=== PATIENT | female | born 1970 ===

== ENCOUNTER 2016-12-01 09:56 | Emergency (ER) | payer OTHER ==
--- NOTE | 2016-12-01 10:14 | UC ---
Headache HPI - HPI Summary HPI Summary: complaint of headache that started yesterday afternoon at work - was able to sleep last night then woke up with headache this morning headache is located behind her eyes photophobia and feels nauseated went to work this morning but couldn't continue d/t pain took exedrin migraine without relief at 7:00 AM without relief taking clartitin to control allergies and avoid migraine hx of migraines and this feels like her normal migraine used to use imitrex but avoids it because she doesn't like to take pils seen by neurology at [facility] last year- told that she has stress induced migraines and has followup appt in [address] Valente is PCP - History Of Current Complaint Chief Complaint: UCHeadache Stated Complaint: HEADACHE Time Seen by Provider: 12/01/16 10:06 Hx Obtained From: Patient Hx Last Menstrual Period: 11/23/16 Onset/Duration: Gradual Onset Onset Of Symptoms: Gradual Initially Headache Was: Moderate Currently Pain Is: Moderate Character: Pressure Location of Headache: Frontal Aggravating Factor: Bright Lights Associated Signs And Symptoms: Positive: Nausea - Allergies/Home Medications Allergies/Adverse Reactions: Allergies Allergy/AdvReac Type Severity Reaction Status Date / Time Perfume Allergy Rash Verified 12/01/16 10:03 Home Medications: Home Medications [id number] [Excedrin Migraine 250-250-65 mg] 2 tab PO Q6HR PRN 12/01/16 [History Confirmed 12/01/16] Ketorolac Tromethamine (Ophth) [Acuvail] 2 drop OPHTHALMIC ONCE PRN 12/01/16 [ History Confirmed 12/01/16] PMH/Surg Hx/FS Hx/Imm Hx Previously Healthy: Yes - endometriosis Neurological History: Migraine - Surgical History Surgical History: Yes Surgery Procedure, Year, and Place: cyst removal. laproscopic endometriosis surgery - Family History Known Family History: Negative: Diabetes - Social History Occupation: Employed Full-time Lives: With Family Alcohol Use: Rare Substance Use Type: None Smoking Status (MU): Never Smoked Tobacco Household Exposure Type: Cigarettes Review of Systems Constitutional: Negative Skin: Negative Eyes: Eye Redness, Photophobia ENT: Negative Respiratory: Negative Cardiovascular: Negative Gastrointestinal: Negative Genitourinary: Negative Motor: Negative Neurovascular: Negative Musculoskeletal: Negative Neurological: Headache Psychological: Negative All Other Systems Reviewed And Are Negative: Yes Physical Exam Triage Information Reviewed: Yes Appearance: Well-Nourished, Pain Distress Vital Signs: Initial Vital Signs Temp 98.2 F 12/01/16 10:00 Pulse 90 12/01/16 10:00 Resp 16 12/01/16 10:00 BP 120/79 12/01/16 10:00 Pulse Ox 100 12/01/16 10:00 Vital Signs Reviewed: Yes Eyes: Positive: Other: - right conjunctiva erythema, fundoscopic exam normal. Negative: Discharge ENT: Positive: Pharynx normal, TMs normal Neck: Positive: Supple, No Lymphadenopathy Respiratory: Positive: Lungs clear, Normal breath sounds, No respiratory distress, No accessory muscle use Cardiovascular: Positive: RRR, No Murmur, Pulses Normal, Brisk Capillary Refill Abdomen Description: Positive: Nontender, Soft Bowel Sounds: Positive: Present Musculoskeletal: Positive: No Edema Neurological: Positive: Alert, Other: - CN [id number] normal negative [place] Psychological Exam: Normal Skin Exam: Normal Re-Evaluation - Re-Evaluation First Eval Re-Evaluation Time: 10:58 Change: Improved - headache pain has lessened from 10 to 3 on a scale from 0-10 Headache Course/Dx - Course Course Of Treatment: exam completed. no red flags to warrant imaging. will treat for acute migraine and pain and rx for imitrex for rescue intervention. will followup with PCP. discussed s/s of when to seek emergent care - Differential Dx/Diagnosis Differential Diagnosis/HQI/PQRI: Migraine, Sinus Headache, Tension Headache Provider Diagnoses: migraine Discharge - Discharge Plan Condition: Stable Disposition: HOME Prescriptions: SUMAtriptan TAB* [Imitrex TAB*] 50 mg PO SEE INSTRUCTIONS #2 tab Patient Education Materials: Migraine Headache (ED) Forms: *Work Release Referrals: Vicenta Thompson MD [Primary Care Provider] - Additional Instructions: Increase fluids and rest continue excedrin in 6 hours as needed for pain Please review your discharge instructions. If your symptoms do not improve please call your primary care provider or return to urgent care.
[2016-12-01] MEDS ORDERED: Ketorolac INJ* 60 MG/2 ML VIAL IM ONE (10:19)
[2016-12-01 10:28] VITALS: BP 120/79
== END 2016-12-01 11:05 | disposition home or self-care (01) ==
LOC: UCEAST 09:56
DX: G43.909 Migraine, unspecified, not intractable, without status migrainosus (principal)
CPT/HCPCS: 96372; J1885

== ENCOUNTER 2016-12-06 11:12 | Emergency (ER) | payer OTHER ==
--- NOTE | 2016-12-06 14:36 | UC ---
Eye Complaint HPI - HPI Summary HPI Summary: 46 y/o female presents to the urgent care c/o RT eye with redness and blurred vision since last Wednesday night 11/30/2016. Pt reports she was seen at the Urgent care on 12/01/2016 for Migraine FELIZ Rx Imitrex. Her Migraine FELIZ resolved, but her eye continue to increase in redness and now she has yellowish discharge in the morning, with blurred vision and pressure. Denies pain, FELIZ, N/V/D, chest pain. No other sick contact with similar symptoms. Pt has not other complains. - History of Current Complaint Chief Complaint: UCEye Stated Complaint: EYE COMPLAINT Time Seen by Provider: 12/06/16 14:14 Hx Obtained From: Patient Hx Last Menstrual Period: 11/23/16 ?: No Onset/Duration: Gradual Onset, Lasting Days, Still Present Timing: Constant Severity Initially: Mild Severity Currently: Moderate Pain Intensity: 0 Pain Scale Used: 0-10 Numeric Location of Injury: Conjunctiva - RT eye Character: Dull Aggravating Factor(s): Blinking Alleviating Factor(s): Nothing Associated Signs And Symptoms: Positive: Drainage (Purulent), Vision Impairment Right. Negative: Fever, Swelling - Risk Factors Penetrating Injury Risk Factor: Negative Globe Rupture Risk Factors: Negative Acute Glaucoma Risk Factors: Negative Optic Artery Occlusion Risk Factors: Negative - Allergies/Home Medications Allergies/Adverse Reactions: Allergies Allergy/AdvReac Type Severity Reaction Status Date / Time Perfume Allergy Rash Verified 12/01/16 10:03 PMH/Surg Hx/FS Hx/Imm Hx Previously Healthy: Yes Endocrine History: Other - anemia Other Endocrine History: Anemia Other GI/ History: Endometriosis Neurological History: Migraine - Surgical History Surgical History: Yes Surgery Procedure, Year, and Place: cyst removal. laproscopic endometriosis surgery - Family History Known Family History: Positive: Cardiac Disease, Hypertension Negative: Diabetes Family History: COPD - Social History Occupation: Employed Full-time Lives: With Family Alcohol Use: Occasionally Substance Use Type: None Smoking Status (MU): Never Smoked Tobacco Household Exposure Type: Cigarettes Review of Systems Constitutional: Negative Skin: Negative Eyes: Blurred Vision, Drainage - yellowish, Eye Redness - RT eye ENT: Negative Respiratory: Negative Cardiovascular: Negative Gastrointestinal: Negative Genitourinary: Negative Motor: Negative Neurovascular: Negative Musculoskeletal: Negative Neurological: Negative Psychological: Negative All Other Systems Reviewed And Are Negative: Yes Physical Exam Triage Information Reviewed: Yes Appearance: Well-Appearing, No Pain Distress, Well-Nourished, Thin Vital Signs: Initial Vital Signs Temp 99.1 F 12/06/16 12:14 Pulse 101 12/06/16 12:14 Resp 18 12/06/16 12:14 BP 120/74 12/06/16 12:14 Pulse Ox 100 12/06/16 12:14 Vital Signs Reviewed: Yes Eyes: Positive: Conjunctiva Inflamed - RT eye conjunctiva injected with mild yellowish eye discharge. PERRLA. EOMI, Fundi grossly normal B/L. Patient wears glasses. ENT Exam: Normal ENT: Positive: Normal ENT inspection, Hearing grossly normal, Pharynx normal, Nasal congestion, Nasal drainage - clear nasal discharge and nasal mucosa edematous, TMs normal Dental Exam: Normal Neck exam: Normal Neck: Positive: Supple, Nontender, No Lymphadenopathy Respiratory Exam: Normal Respiratory: Positive: Chest non-tender, Lungs clear, Normal breath sounds Cardiovascular Exam: Normal Cardiovascular: Positive: RRR, No Murmur, Pulses Normal Abdominal Exam: Normal Abdomen Description: Positive: Nontender, No Organomegaly, Soft. Negative: CVA Tenderness (R), CVA Tenderness (L) Bowel Sounds: Positive: Present Musculoskeletal Exam: Normal Musculoskeletal: Positive: Strength Intact, ROM Intact, No Edema Neurological Exam: Normal Psychological Exam: Normal Skin Exam: Normal Eye Complaint Course/Dx - Course Course Of Treatment: 46 y/o female presents to the urgent care c/o RT eye with redness and blurred vision since last Wednesday night 11/30/2016. Pt reports she was seen at the Urgent care on 12/01/2016 for Migraine FELIZ Rx Imitrex. Her Migraine FELIZ resolved, but her eye continue to increase in redness and now she has yellowish discharge in the morning, with blurred vision and pressure. Denies pain, FELIZ, N/V/D, chest pain. No other sick contact with similar symptoms. HX obtained. PE abnormal findings:Eyes: Positive: Conjunctiva Inflamed - RT eye conjunctiva injected with mild yellowish eye discharge. PERRLA. EOMI, Fundi grossly normal B/L. Patient wears glasses.ENT: Positive: Normal ENT inspection, Hearing grossly normal, Pharynx normal, Nasal congestion , Nasal drainage - clear nasal discharge and nasal mucosa edematous, TMs normal. Most likely bacterial conjunctivitis and Allergic rhinitis. Pt RX Ciprofloxacin opthalmic drops and Flonase to alleviate symptoms. Advised handwashing to prevent spread, If symptoms worsen to return to the urgent care or f/u with her PCP. Pt understood and agreed. Pt left the clinic ambulating. - Differential Dx/Diagnosis Differential Diagnosis/HQI/PQRI: Conjunctivitis, Corneal Abrasion, Foreign Body , Keratitis, Orbital Cellulitis, Uveitis Provider Diagnoses: 1- Bacterial conjunctivitis. 2-Allergic rhinitis Discharge - Discharge Plan Condition: Stable Disposition: HOME Prescriptions: Ciprofloxacin 0.3% OPTH.JARAD* [Cipro 0.3% Opth*] 1 drop RIGHT EYE Q2H #1 btl Fluticasone NASAL SPRAY 50MCG* [Flonase NASAL SPRAY 50MCG*] 2 spray BOTH NARES DAILY #1 btl Patient Education Materials: Conjunctivitis (ED), Allergic Rhinitis (ED) Referrals: Vicenta Thompson MD [Primary Care Provider] - 1 Week Additional Instructions: Please apply medications as instructed , implement constant hand washing to avoid spread. If you do not improve or if symptoms worsen after the course of antibiotics, you should either follow up with your PCP or return to the urgent care for further evaluation and treatment.
[2016-12-06 15:05] VITALS: BP 122/70
== END 2016-12-06 15:05 | disposition home or self-care (01) ==
LOC: UCEAST 11:12
DX: H10.89 Other conjunctivitis (principal); A49.9 Bacterial infection, unspecified
CPT/HCPCS: 99212; G0463

== ENCOUNTER 2018-09-26 11:43 | Emergency (ER) | payer OTHER ==
[2018-09-26 12:02] VITALS: BP 141/87
--- NOTE | 2018-09-26 12:42 | UC ---
Cardiac HPI - HPI Summary HPI Summary: 48-year-old woman comes in with chief complaints of chest pain. Last evening patient reports chest discomfort middle of her chest radiating to her left neck. Lasted for couple of hours. Started while she was sitting down. She describes it as an ache. She was sweaty with it. She denies any nausea or shortness of breath. She laid down in bed and the pain remained for couple hours and she finally fell asleep when she woke up the chest pain was gone. sHe still has some left neck discomfort. When she had the pain she did not find any exacerbating factors. She does not have high blood pressure high cholesterol or diabetes. She does have a family history of relative had a heart attack at 53 years old. She reports the relatives who have had heart attacks involvement smoker she is not a smoker. No complaint of any abdominal pain. She's had her gallbladder out. - History of Current Complaint Chief Complaint: UCChestPain Stated Complaint: CHEST/SHOULDER PAIN Time Seen by Provider: 09/26/18 11:52 Hx Last Menstrual Period: 11/23/16 Pain Intensity: 5 - Allergy/Home Medications Allergies/Adverse Reactions: Allergies Allergy/AdvReac Type Severity Reaction Status Date / Time Perfume Allergy Rash Verified 09/26/18 12:03 Home Medications: Home Medications Ferrous Gluconate [Iron] 1 tab PO DAILY 09/26/18 [History Confirmed 09/26/18] PMH/Surg Hx/FS Hx/Imm Hx Previously Healthy: Yes - Surgical History Surgical History: Yes Surgery Procedure, Year, and Place: cyst removal. laproscopic endometriosis surgery - Family History Known Family History: Positive: Cardiac Disease, Hypertension Negative: Diabetes Family History: COPD - Social History Alcohol Use: Occasionally Substance Use Type: None Smoking Status (MU): Never Smoked Tobacco Household Exposure Type: Cigarettes Review of Systems All Other Systems Reviewed And Are Negative: Yes Constitutional: Positive: Other - see hpi Skin: Positive: Negative Eyes: Positive: Negative ENT: Positive: Negative Respiratory: Positive: Negative Cardiovascular: Positive: Chest Pain Gastrointestinal: Positive: Negative Motor: Positive: Negative Neurovascular: Positive: Negative Musculoskeletal: Positive: Negative Neurological: Positive: Negative Psychological: Positive: Negative Is Patient Immunocompromised?: No Physical Exam Triage Information Reviewed: Yes Appearance: Well-Appearing, No Pain Distress, Well-Nourished Vital Signs: Initial Vital Signs Temp 98.7 F 09/26/18 12:00 Pulse 96 09/26/18 12:00 Resp 16 09/26/18 12:00 BP 141/87 09/26/18 12:00 Pulse Ox 97 09/26/18 12:00 Eye Exam: Normal Eyes: Positive: Conjunctiva Clear Neck: Positive: Supple Respiratory: Positive: Lungs clear, Normal breath sounds, No respiratory distress Cardiovascular: Positive: RRR Abdomen Description: Positive: Nontender, Soft Bowel Sounds: Positive: Present Musculoskeletal Exam: Normal Musculoskeletal: Positive: Strength Intact, ROM Intact, No Edema - No calf tenderness Neurological: Positive: Alert, Muscle Tone Normal Psychological Exam: Normal Psychological: Positive: Age Appropriate Behavior Skin Exam: Normal Diagnostics - EKG Cardiac Rate: NL - at 1151 Cardiac Rhythm: Sinus: Normal - 98 bpm Ectopy: None ST Segment: Normal - Assessment/Plan Course Of Treatment: I discussed the EKG with the patient. I do not see any ischemic changes there is no ectopy. On examination her calves are nontender. Patient reports no chest pain at this time but does have some left-sided neck discomfort. I recommended further evaluation in the emergency department. Patient declined ambulance transport. - Clinical Impression Provider Diagnosis: Chest pain Discharge - Sign-Out/Discharge Documenting (check all that apply): Patient Departure All imaging exams completed and their final reports reviewed: No Studies - Discharge Plan Condition: Stable Disposition: HOME-RECOMMEND TO ED Patient Education Materials: Chest Pain (ED) Referrals: Vicenta Thompson MD [Primary Care Provider] - Additional Instructions: GO DIRECTLY TO THE EMERGENCY DEPARTMENT FOR FURTHER EVALUATION. - Billing Disposition and Condition Condition: STABLE Disposition: Home-Recommend to ED
== END 2018-09-26 12:49 | disposition home health service (06) ==
LOC: UCEAST 11:43
DX: R07.89 Other chest pain (principal); M54.2 Cervicalgia; Z91.048 Other nonmedicinal substance allergy status
CPT/HCPCS: 99212; G0463